=== PATIENT | male | born 1975 | race Caucasian/White ===

== ENCOUNTER 2018-03-18 07:31 | Emergency (ER) | payer OTHER ==
[~2018-03-18] VITALS: Ht 172.7 cm; Wt 81.6 kg
[~2018-03-18 07:31] MED LIST: AMOXICILLIN500 M1
[2018-03-18] MEDS ORDERED: [UNRECOGNIZED DRUG - OTHER] (07:43)
[2018-03-18] MEDS ORDERED: KETO10TA2 PO (10:29)
[2018-03-18] MEDS ORDERED: CYCLOBENZAPRINE10 MG PO (10:29)
[2018-03-18] MEDS ORDERED: ORPHENADRINE C100 MG PO (10:29)
== END 2018-03-18 11:09 | disposition home or self-care (01) ==
LOC: ER 07:31
DX: S73.191A Other sprain of right hip, initial encounter (principal); X50.1XXA Overexertion from prolonged static or awkward postures, initial encounter; Y93.89 Activity, other specified; Y92.89 Other specified places as the place of occurrence of the external cause; Y99.8 Other external cause status